=== PATIENT | female | born 1940 | race Caucasian/White ===

== ENCOUNTER 2017-03-10 04:44 | Emergency (ER) | payer MEDICARE, OTHER ==
[~2017-03-10] VITALS: Ht 152.4 cm; Wt 62.6 kg
[2017-03-10 04:58] VITALS: BP 150/77
--- NOTE | 2017-03-10 05:10 | NUR ---
76/F BIB DAUGHTER FOR EVALUATION OF ICD SITE ON LT UPPER CHEST. PER DAUGHTER ICD WAS PLACED YESTERDAY. LT UPPER CHEST NOTED WITH TENDERNESS, REDNESS, DRESSING INTACT AND SATURATED WITH LIGHT YELLOW DRAINAGE. DAUGHTER DENIES FEVER/CHILLS, N/V/D, SOB/CP. PMH: HTN, ARRHYTHMIA
[2017-03-10] MEDS ORDERED: HYDROcodone/APAP 5/325 MG 1 TAB TAB PO ONE (05:50)
--- NOTE | 2017-03-10 06:56 | NUR ---
Patient discharged with v/s stable. Written and verbal after care instructions given and explained. Patient verbalized understanding. Ambulatory with steady gait. All questions addressed prior to discharge. Advised to follow up with PMD.
--- NOTE | 2017-03-10 10:01 | NUR ---
CALLED PATIENT PER DR. FRANCO REGARDING RESULTS OF CHEST XR. AND INSTRUCRION TO FOLLOW UP WITH PRIMARY DOCTOR. SPOKE TO BRIDGET, PATIENTS DAUGHTER. 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 EDWIN MADE AWARE
== END 2017-03-10 06:56 | disposition home or self-care (01) ==
LOC: MED 04:44
DX: T82.7XXA Infection and inflammatory reaction due to other cardiac and vascular devices, implants and grafts, initial encounter (principal); E11.9 Type 2 diabetes mellitus without complications; I10 Essential (primary) hypertension; I49.9 Cardiac arrhythmia, unspecified
CPT/HCPCS: 71045; 99283; Q0092